=== PATIENT | female | born 1995 | race American Indian/Alaskan Native ===

== ENCOUNTER 2020-05-22 11:18 | Emergency (ER) | payer SELFPAY ==
[2020-05-22 12:06] VITALS: BP 128/88
--- NOTE | 2020-05-22 12:14 | Event Note ---
ED Screening Note Date of service: 05/22/20 Time: 12:12 ED Screening Note: 25-year-old -[place] female presents to the emergency room for a 2 to 3- month history of left lower abdomen pain that is been intermittent. This is a first-time patient has been seen for this. She reports her last menstrual period was 04/29/2020. She is 2 para 2. She denies any vaginal discharge vaginal bleeding no dysuria. She does admit to urinary frequency but no urgency. She also admits to constipation. This initial assessment/diagnostic orders/clinical plan/treatment(s) is/are subject to change based on patients health status, clinical progression and re- assessment by fellow clinical providers in the ED. Further treatment and workup at subsequent clinical providers discretion. Patient/guardian urged not to elope from the ED as their condition may be serious if not clinically assessed and managed. Initial orders include:
[2020-05-22 14:28] LABS: Bacteria,Urine 1+ /HPF (Negative); Bilirubin,Urine NEG (Negative); Blood,Urine NEG (Negative); Color,Urine Yellow (Yellow); Mucus,Urine FEW /HPF; Protein,Urine <15 mg/dL mg/dL (Negative); Urobilinogen,Urine < 2.0 mg/dL (<2.0)
--- NOTE | 2020-05-22 15:32 | Emergency Department Report ---
ED Abdominal Pain HPI - General Chief Complaint: Abdominal Pain Stated Complaint: PAIN ON LEFT SIDE OF ABD PUI?: No Source: patient Mode of arrival: Ambulatory Limitations: No Limitations - History of Present Illness Initial Comments: 25-year-old -[place] female presents to the emergency room for a 2 to 3- month history of left lower abdomen pain that is been intermittent. This is a first-time patient has been seen for this. She reports her last menstrual period was 04/29/2020. She is 2 para 2. She denies any vaginal discharge vaginal bleeding no dysuria. She does admit to urinary frequency but no urgency. She also admits to constipation. Onset/Timin -: month(s) Location: LLQ Radiation: none Migration to: no migration Severity scale (0 -10): 2 Quality: cramping Consistency: intermittent Improves With: nothing Worsens With: nothing Associated Symptoms: constipation, dysuria. denies: nausea, vomiting, diarrhea - Related Data LMP Date: 04/29/20 Previous Rx's Medication Instructions Recorded Last Taken Type polyethylene glycoL 3350 [Miralax 17 gm PO QDAY #1 box 05/22/20 Unknown Rx 3350] Allergies Allergy/AdvReac Type Severity Reaction Status Date / Time No Known Allergies Allergy Unverified 05/22/20 12:03 ED Review of Systems ROS: Stated complaint: PAIN ON LEFT SIDE OF ABD Other details as noted in HPI Comment: All other systems reviewed and negative ED Past Medical Hx - Past Medical History Previous Medical History?: No - Surgical History Past Surgical History?: No - Social History Smoking Status: Never Smoker Substance Use Type: None - Medications Home Medications: Home Medications Medication Instructions Recorded Confirmed Last Taken Type polyethylene glycoL 3350 [Miralax 17 gm PO QDAY #1 box 05/22/20 Unknown Rx 3350] ED Physical Exam - General Limitations: No Limitations General appearance: alert, in no apparent distress - Head Head exam: Present: atraumatic, normocephalic - Eye Eye exam: Present: normal appearance - ENT ENT exam: Present: mucous membranes moist - Neck Neck exam: Present: normal inspection - Respiratory Respiratory exam: Present: normal lung sounds bilaterally. Absent: respiratory distress - Cardiovascular Cardiovascular Exam: Present: regular rate, normal rhythm. Absent: systolic murmur, diastolic murmur, rubs, gallop - GI/Abdominal GI/Abdominal exam: Present: soft, normal bowel sounds - Extremities Exam Extremities exam: Present: normal inspection - Back Exam Back exam: Present: normal inspection - Neurological Exam Neurological exam: Present: alert, oriented X3 - Psychiatric Psychiatric exam: Present: normal affect, normal mood - Skin Skin exam: Present: warm, dry, intact, normal color. Absent: rash ED Course Vital Signs 05/22/20 05/22/20 12:02 16:14 Temperature 98.9 F Pulse Rate 90 89 Respiratory 20 18 Rate Blood Pressure 128/88 O2 Sat by Pulse 100 100 Oximetry ED Medical Decision Making - Lab Data Laboratory Tests 05/22/20 05/22/20 13:13 Unknown HCG, Quant < 2 Urine Color Yellow Urine Turbidity Cloudy Urine pH 6.0 Ur Specific Wilson 1.004 Urine Protein <15 mg/dl Urine Glucose (UA) Neg Urine Ketones Neg Urine Blood Neg Urine Nitrite Neg Urine Bilirubin Neg Urine Urobilinogen < 2.0 Ur Leukocyte Esterase Neg Urine WBC (Auto) 3.0 Urine RBC (Auto) 1.0 U Epithel Cells (Auto) 26.0 H Urine Bacteria (Auto) 1+ Urine Mucus Few - Radiology Data Radiology results: report reviewed Ordering Physician: GUIDO NO Date of Service: 05/22/20 Procedure(s): XR abdomen 1V ap Accession Number(s): [id number] cc: GUIDO NO Fluoro Time In Minutes: ABDOMEN 1 VIEW INDICATION / CLINICAL INFORMATION: Left lower quadrant pain history of constipation. COMPARISON: None available. FINDINGS: TUBES / LINES: None. BOWEL GAS PATTERN: No significant abnormality. Moderate colonic stool burden. FREE AIR / EXTRALUMINAL GAS: None. ADDITIONAL FINDINGS: No significant additional findings. IMPRESSION: Moderate colonic stool burden, consistent with constipation. No acute radiographic abnormality of the abdomen. Signer Name: Jo Ann Jimenez MD Signed: 05/22/2020 3:55 PM Workstation Name: [id number] Transcribed By: LAUREANO Dictated By: JO ANN JIMENZE MD Electronically Authenticated By: JO ANN JIMENEZ MD Signed Date/Time: 05/22/20 1555 DD/ 155 TD/TT: - Medical Decision Making 25-year-old -Pak[place] female presents to the emergency room for a 2 to 3- month history of left lower abdomen pain that is been intermittent. This is a first-time patient has been seen for this. She reports her last menstrual period was 04/29/2020. She is 2 para 2. She denies any vaginal discharge vaginal bleeding no dysuria. She does admit to urinary frequency but no urgency. She also admits to constipation. Urinalysis is negative for any acute infections, negative test. Order KUB pending result. KUB shows moderate colonic stool consistent with constipation. Patient will be given a prescription for MiraLAX instructed to increase her fluid intake increase her fiber intake and follow-up with her primary care provider. Critical care attestation.: If time is entered above; I have spent that time in minutes in the direct care of this critically ill patient, excluding procedure time. ED Disposition Clinical Impression: Constipation Disposition: DC-01 TO HOME OR SELFCARE Is pt being admited?: No Does the pt Need Aspirin: No Condition: Stable Instructions: Constipation, Adult, [id number], Abdominal Pain (ED) Additional Instructions: Labs are stable no concerns for infection. X-ray shows you have constipation. Please take MiraLAX as needed to improve your bowel movements. Be sure to eat a high-fiber diet. Drink plenty of water at least 4 to 6 L daily. Prescriptions: polyethylene glycoL 3350 [Miralax 3350] 17 gm PO QDAY #1 box Referrals: PRIMARY CAREMD [Primary Care Provider] - 3-5 Days Forms: Work/School Release Form(ED)
--- NOTE | 2020-05-22 15:59 | XRay Report ---
ABDOMEN 1 VIEW INDICATION / CLINICAL INFORMATION: Left lower quadrant pain history of constipation. COMPARISON: None available. FINDINGS: TUBES / LINES: None. BOWEL GAS PATTERN: No significant abnormality. Moderate colonic stool burden. FREE AIR / EXTRALUMINAL GAS: None. ADDITIONAL FINDINGS: No significant additional findings. IMPRESSION: Moderate colonic stool burden, consistent with constipation. No acute radiographic abnormality of the abdomen. Signer Name: Philip Betancourt MD Signed: 05/22/2020 3:55 PM Workstation Name: [id number]
== END 2020-05-22 16:14 | disposition home or self-care (01) ==
LOC: ED 11:18
DX: K59.00 Constipation, unspecified (principal); Z79.899 Other long term (current) drug therapy
CPT/HCPCS: 36415; 74018; 81001; 84702